=== PATIENT | male | born 1995 | race Caucasian/White ===

== ENCOUNTER 2019-04-17 08:21 | Day surgery (SDC) | payer OTHER ==
[2019-04-17] MEDS ORDERED: cefOXitin 2 GM VIAL ONE (08:30)
[2019-04-17] MEDS ORDERED: Sodium Chloride 0.9% 100 ML ONE (08:30)
[2019-04-17] MEDS ORDERED: Midazolam HCl 2 mg/2 ml Vial ONE (08:39)
[2019-04-17] MEDS ORDERED: Fentanyl 100 MCG/2 ML VIAL ONE (08:39)
[2019-04-17] MEDS ORDERED: Lidocaine 1% w/Epinephrine 1:100K 20 ML VIAL ONE (08:42)
[2019-04-17] MEDS ORDERED: Bupivacaine PF 0.5% 30 ML VIAL ONE (08:42)
[2019-04-17] MEDS ORDERED: Rocuronium Bromide 10 MG/ML (10ML VIAL) ONE (09:46)
[2019-04-17] MEDS ORDERED: Lidocaine 1% PF 5 ML VIAL ONE (09:46)
[2019-04-17] MEDS ORDERED: PROPOFOL 200 MG/20 ML VIAL ONE (09:46)
[2019-04-17] MEDS ORDERED: Ondansetron PF 4 MG/2 ML Vial ONE (09:46)
[2019-04-17] MEDS ORDERED: Ketorolac Tromethamine 30 MG/ML VIAL ONE (09:46)
[2019-04-17] MEDS ORDERED: Glycopyrrolate 0.2 MG/ML 5 ML SYRINGE ONE (09:46)
[2019-04-17] MEDS ORDERED: Dexamethasone 20 MG/5 ML VIAL ONE (09:46)
--- NOTE | 2019-04-19 07:48 | OP ---
DATE OF PROCEDURE: 04/17/2019 PREOPERATIVE DIAGNOSIS: Acute cholecystitis. PROCEDURE PERFORMED: Laparoscopic cholecystectomy. INDICATIONS: The patient is a 23-year-old male, who has had a several month history of right upper quadrant pain. It has become much worse over the last day. He went to the emergency room and was found to have a thickened gallbladder wall and gallstones. FINDINGS: A thickened gallbladder wall. He had hydrops of the gallbladder with clear fluid within the gallbladder. DESCRIPTION OF PROCEDURE: After informed consent was obtained, the patient was taken to the operating room and given general endotracheal anesthesia, placed in the supine position. Abdomen was prepped and draped in usual fashion. Local anesthesia was infiltrated subcutaneously and deep. A supraumbilical incision was performed. Subcu divided sharply. The fascia was grasped with 2 stay sutures of 0 Vicryl placed in each side of midline. Midline incised. Digital palpation revealed no local adhesions. A blunt 12 mm trocar inserted. Pneumoperitoneum was created to a pressure of 15 mmHg. A 0-degree laparoscope inserted and under direct vision, three 5-mm ports were placed subcostally. The gallbladder was distended. An aspirating needle was inserted. The gallbladder was decompressed, 60 mL of clear fluid removed from the gallbladder. The gallbladder was grasped and advanced superiorly. The peritoneum was lysed distally to reveal the small caliber cystic duct and artery. These were triply ligated with hemoclips and divided. The gallbladder was removed from its fossa utilizing electrocautery, removed from the abdomen in an endosac through the supraumbilical port. Hemostasis was assured. Trocars and retractors removed. The fascia was closed with interrupted 0 Vicryl suture. The skin was closed with interrupted 4-0 Rapide. Dermabond applied. The patient tolerated the procedure well, transferred to Recovery in good condition. Sponge and needle count verified correct x2. Job ID: [id number]
== END 2019-04-17 12:02 | disposition home or self-care (01) ==
LOC: SDC 08:21
PROVIDERS: ATTEND Surgery
PROC: 0FT44ZZ Resection of Gallbladder, Percutaneous Endoscopic Approach (ICD-10-PCS; principal; 2019-04-17)
DX: K80.12 Calculus of gallbladder with acute and chronic cholecystitis without obstruction (principal); K82.1 Hydrops of gallbladder; F17.290 Nicotine dependence, other tobacco product, uncomplicated; E66.9 Obesity, unspecified; Z68.41 Body mass index [BMI] 40.0-44.9, adult
CPT/HCPCS: 88304; J0131; J0694; J1100; J1885; J2001; J2250; J2405; J2704; J3010; J3490; S0020